=== PATIENT | male | born 1955 | race Caucasian/White ===

== ENCOUNTER 2018-07-03 18:31 | Inpatient (IN) | payer OTHER ==
[~2018-07-03] VITALS: Ht 177.8 cm; Wt 97.9 kg
[~2018-07-03 18:31] MED LIST: ATOR40TA PO; FISH1000 PO; FLAX PO; HYDACE5 PO; HYDR-86; IBUP600; MELO7.5 PO; ROSU10TA PO; ROSU5 PO
[2018-07-03 19:00] LABS: BASOPHILS ABSOLUTE AUTO 0.03 K/mm3 (0.00-0.23); BASOPHILS PERCENT AUTO 1 % (0-2); EOSINOPHILS ABSOLUTE AUTO 0.14 K/mm3 (0.00-0.68); EOSINOPHILS PERCENT AUTO 2 % (0-6); Hematocrit 45.3 % (37.0-53.0); Hemoglobin 14.7 g/dL (13.5-17.5); IMMATURE GRAN ABSOLUTE AUTO 0.01 K/mm3 (0.00-0.10); IMMATURE GRAN PERCENT AUTO 0 % (0-1); LYMPHOCYTES ABSOLUTE AUTO 1.68 K/mm3 (0.84-5.20); LYMPHOCYTES PERCENT AUTO 28 % (21-46); MONOCYTES ABSOLUTE AUTO 0.48 K/mm3 (0.16-1.47); MONOCYTES PERCENT AUTO 8 % (4-13); Mean Corpuscular HGB 28.3 pg (26.0-34.0); Mean Corpuscular HGB Conc 32.5 g/dL (31.5-36.5); Mean Corpuscular Volume 87 fL (80-100); Mean Platelet Volume 9.7 fL (9.1-12.4); NEUTROPHILS ABSOLUTE AUTO 3.74 K/mm3 (1.96-9.15); NEUTROPHILS PERCENT AUTO 62 % (41-73); Platelet Count 254 K/mm3 (150-400); RDW Coefficient Variation 13.9 % (11.7-14.2); RDW Standard Deviation 44.3 fL (35.1-46.3); Red Blood Cell Count 5.19 M/mm3 (4.30-5.90); White Blood Cell Count 6.08 K/mm3 (4.00-11.30)
[2018-07-03 19:26] LABS: Alanine Aminotransfer (ALT/SGP 43 U/L (12-78); Albumin, Blood 3.7 g/dL (3.4-5.0); Alk Phos 78 U/L (50-136); Anion Gap 6 mmol/L (6-16); Aspartate Aminotrans (AST/SGOT 26 U/L (12-37); Bilirubin, Total 0.5 mg/dL (0.1-1.0); Blood Urea Nitrogen 19 mg/dL (8-24); Bun/Creatinine Ratio 23.3 (12.0-20.0); CO2, Blood 26 mmol/L (21-32); Calcium, Blood 8.4 mg/dL (8.5-10.1); Chloride, Blood 107 mmol/L (98-108); Creatinine, Blood 0.81 mg/dL (0.60-1.20); Globulin, Blood 3.8 g/dL (2.2-4.0); Glomerular Filtration Rate >60 (60-); Glucose, Blood 95 mg/dL (70-99); Potassium, Blood 3.6 mmol/L (3.5-5.5); Sodium, Blood 139 mmol/L (136-145); Total Protein, Blood 7.5 g/dL (6.4-8.2)
[2018-07-04 06:09] LABS: Hematocrit 43.8 % (37.0-53.0); Hemoglobin 14.5 g/dL (13.5-17.5); Mean Corpuscular HGB 28.5 pg (26.0-34.0); Mean Corpuscular HGB Conc 33.1 g/dL (31.5-36.5); Mean Corpuscular Volume 86 fL (80-100); Mean Platelet Volume 9.7 fL (9.1-12.4); Platelet Count 257 K/mm3 (150-400); RDW Coefficient Variation 13.8 % (11.7-14.2); RDW Standard Deviation 43.8 fL (35.1-46.3); Red Blood Cell Count 5.09 M/mm3 (4.30-5.90); White Blood Cell Count 6.95 K/mm3 (4.00-11.30)
[2018-07-04 06:26] LABS: Alanine Aminotransfer (ALT/SGP 34 U/L (12-78); Albumin, Blood 3.4 g/dL (3.4-5.0); Alk Phos 73 U/L (50-136); Anion Gap 8 mmol/L (6-16); Aspartate Aminotrans (AST/SGOT 25 U/L (12-37); Bilirubin, Total 0.7 mg/dL (0.1-1.0); Blood Urea Nitrogen 17 mg/dL (8-24); Bun/Creatinine Ratio 21.1 (12.0-20.0); CO2, Blood 26 mmol/L (21-32); Calcium, Blood 8.2 mg/dL (8.5-10.1); Chloride, Blood 109 mmol/L (98-108); Creatinine, Blood 0.81 mg/dL (0.60-1.20); Globulin, Blood 3.5 g/dL (2.2-4.0); Glomerular Filtration Rate >60 (60-); Glucose, Blood 88 mg/dL (70-99); Potassium, Blood 3.7 mmol/L (3.5-5.5); Sodium, Blood 143 mmol/L (136-145); Total Protein, Blood 6.9 g/dL (6.4-8.2)
[2018-07-04 06:28] LABS: Troponin I 0.384 ng/mL (0.000-0.040)
--- NOTE | 2018-07-04 06:28 | NUR ---
VSS, AFEBRILE, A/O, INDEPENDENT, TELE: NSR, 20G R FA. PMHX: HTN. PLEASANT, COOPERATIVE, NEG TROPS, NEG EKG, STABLE. MAY D/C TODAY.
--- NOTE | 2018-07-04 13:04 | NUR ---
discharge PT STATE NO CHEST PAIN, NO N/T EXTREMITIES, STATE "I FEEL FINE". ECHO COMPLETED. DR BYRD IN TO SEE HIM REVIEW RESULTS OF CARDIAC ENZYMES, ORDER CARDIAC CONSULT. DR SOTO IN TO SEE PT, REVIEW RESULTS OF TESTS, STATE NEED FOR ANGIOGRAM & EXPLAIN PROCEDURE, CONSENT OBTAINED. [facility] RN IN TO TAKE PT OUT FOR PROCEDURE.
[2018-07-04 13:06] LABS: International Normalized Ratio 0.96; Prothrombin Time Results 10.2 Sec (9.7-11.5)
--- NOTE | 2018-07-04 13:29 | NUR ---
AM ASSESSMENT PT STATE NO PAIN, NO N/T EXTREMITIES, STATE "I FEEL FINE". DR BYRD IN TO SEE HIM REVIEW ELEVATED TROPONIN & NEED FOR CARDIAC CONSULT. DR SOTO IN TO SEE HIM REVIEW LABS & TESTS, EXPAIN NEED FOR ANGIOGRAM & PROCEDURE. PT CONSENTS. [facility]RT [facility] RN IN TO TAKE PT OUT FOR PROCDURE. WILL TRANSFER TO PCU AFTER.
--- NOTE | 2018-07-04 19:20 | NUR ---
Shift Summary Pt arrived to unit from at approx 1430. VSS. In no apparent sign of distress. Pt is A&Ox4. R radial access site wnl. Deflated per protocol and completely deflated at 1820. No s/sx of hematoma. Very small amnt of blood oozed at R radial access site, but no further bleeding noted after 1800. R wrist immobilizer in place. Pt compliant with activity restrictions. Pt denies any pain or CP. Denies any other complaints. Currently resting in bed with call light within reach. Denies any further questions, complaints or requests at this time. Will continue to montior until report is given to aubrie ADAMS.
[2018-07-05 04:41] LABS: BASOPHILS ABSOLUTE AUTO 0.04 K/mm3 (0.00-0.23); BASOPHILS PERCENT AUTO 1 % (0-2); EOSINOPHILS ABSOLUTE AUTO 0.13 K/mm3 (0.00-0.68); EOSINOPHILS PERCENT AUTO 2 % (0-6); Hematocrit 42.5 % (37.0-53.0); Hemoglobin 14.2 g/dL (13.5-17.5); IMMATURE GRAN ABSOLUTE AUTO 0.02 K/mm3 (0.00-0.10); IMMATURE GRAN PERCENT AUTO 0 % (0-1); LYMPHOCYTES ABSOLUTE AUTO 1.82 K/mm3 (0.84-5.20); LYMPHOCYTES PERCENT AUTO 24 % (21-46); MONOCYTES ABSOLUTE AUTO 0.45 K/mm3 (0.16-1.47); MONOCYTES PERCENT AUTO 6 % (4-13); Mean Corpuscular HGB 28.8 pg (26.0-34.0); Mean Corpuscular HGB Conc 33.4 g/dL (31.5-36.5); Mean Corpuscular Volume 86 fL (80-100); Mean Platelet Volume 9.9 fL (9.1-12.4); NEUTROPHILS ABSOLUTE AUTO 5.15 K/mm3 (1.96-9.15); NEUTROPHILS PERCENT AUTO 68 % (41-73); Platelet Count 253 K/mm3 (150-400); RDW Coefficient Variation 13.9 % (11.7-14.2); RDW Standard Deviation 43.9 fL (35.1-46.3); Red Blood Cell Count 4.93 M/mm3 (4.30-5.90); White Blood Cell Count 7.61 K/mm3 (4.00-11.30)
[2018-07-05 04:56] LABS: Albumin, Blood 3.3 g/dL (3.4-5.0); Anion Gap 7 mmol/L (6-16); Blood Urea Nitrogen 17 mg/dL (8-24); Bun/Creatinine Ratio 22.9 (12.0-20.0); CHOL/HDL RATIO 6.1; CO2, Blood 23 mmol/L (21-32); Chloride, Blood 111 mmol/L (98-108); Cholesterol 231 mg/dL (50-200); Creatinine, Blood 0.74 mg/dL (0.60-1.20); Glomerular Filtration Rate >60 (60-); Glucose, Blood 90 mg/dL (70-99); HDL Cholesterol 38 mg/dL (>39); LDL/HDL RATIO 4.5; Low Density Lipoprotein Chol 170 mg/dL (0-110); Phosphorus, Blood 2.5 mg/dL (2.5-4.9); Potassium, Blood 3.7 mmol/L (3.5-5.5); Sodium, Blood 141 mmol/L (136-145); Triglycerides 117 mg/dL (30-160); Very Low Density Lipoprot Chol 23 mg/dL (6-32)
--- NOTE | 2018-07-05 05:51 | NUR ---
SHIFT SUMMARY: PATIENT TR BAND FULLY RECOVERED AT APPROX 1820 07/04/18. PATIENT HAS WRIST IMMOBILIZER ON AND IS COMPLIANT. ALL VSS, RIGHT RADIAL MAINTAINED WELL WITH NO ISSUES. BED LOW AND LOCKED, CALL LIGHT WITHIN REACH.
--- NOTE | 2018-07-05 05:55 | NUR ---
PATIENT HAS BEEN NPO SINCE 209907/04/18 FOR CORONARY RISK PANEL.
[2018-07-05] MEDS ORDERED: ASPI325EC PO (11:07)
[2018-07-05] MEDS ORDERED: ATOR80 PO (11:07)
[2018-07-05] MEDS ORDERED: CLOP75 PO (11:07)
[2018-07-05] MEDS ORDERED: DOCU100 PO (11:08)
[2018-07-05] MEDS ORDERED: METO25ER PO (11:08)
[2018-07-05] MEDS ORDERED: ONDA4ODT MM (11:09)
== END 2018-07-05 12:56 | disposition home or self-care (01) | DRG 247 ==
LOC: ER 18:31 → MEDS 23:29 → PCU 07-04 13:49 → MEDS 07-04 13:49 → PCU 07-04 16:11 → MEDS 07-04 16:11 → PCU 07-05 12:56
PROVIDERS: Family Medicine; Internal Medicine Cardiovascular Disease; Physician Assistant; ADMIT Internal Medicine
PROC: 027034Z Dilation of Coronary Artery, One Artery with Drug-eluting Intraluminal Device, Percutaneous Approach (ICD-10-PCS; principal; 2018-07-04)
PROC: 4A023N7 Measurement of Cardiac Sampling and Pressure, Left Heart, Percutaneous Approach (ICD-10-PCS; 2018-07-04)
PROC: B2111ZZ Fluoroscopy of Multiple Coronary Arteries using Low Osmolar Contrast (ICD-10-PCS; 2018-07-04)
DX: I21.4 Non-ST elevation (NSTEMI) myocardial infarction (principal); I25.10 Atherosclerotic heart disease of native coronary artery without angina pectoris; I77.819 Aortic ectasia, unspecified site; R00.1 Bradycardia, unspecified; E78.5 Hyperlipidemia, unspecified; G89.29 Other chronic pain; M54.9 Dorsalgia, unspecified; Z79.899 Other long term (current) drug therapy; Z87.891 Personal history of nicotine dependence
CPT/HCPCS: 36415; 71046; 80053; 80061; 80069; 82550; 83690; 84484; 85025; 85027; 85347; 85610; 86850; 86900; 86901; 93005; 93010; 93306; 93458; 96372; 99152; 99153; 99285-25; C1725; C1769; C1874; C1887; C1894; C9600; G0378; J1644; J1650; J2250; J3010; J7030; Q9967

== ENCOUNTER 2019-04-17 17:30 | Emergency (ER) | payer OTHER ==
[~2019-04-17] VITALS: Ht 177.8 cm; Wt 95.2 kg
[~2019-04-17 17:30] MED LIST changes: +ASPI325EC PO; +ATOR80 PO; +CLOP75 PO; +DOCU100 PO; +METO25ER PO; +ONDA4ODT MM
[2019-04-17 18:44] LABS: Source, Urine Clean Catch
[2019-04-17 18:47] LABS: Appearance, Urine Clear (Clear); Bilirubin, Urine Neg (Neg); Blood, Urine Neg (Neg); Color, Urine Yellow (P-Yellow); Glucose Qualitative, Urine Neg (Neg); Ketones, Urine 1+ (Neg); Leukocyte Esterase, Urine Neg (Neg); Nitrite, Urine Neg (Neg); Protein, Urine Neg (Neg); Urobilinogen, Urine 1+ (Normal)
[2019-04-17 19:05] LABS: BASOPHILS ABSOLUTE AUTO 0.04 K/mm3 (0.00-0.23); BASOPHILS PERCENT AUTO 1 % (0-2); EOSINOPHILS ABSOLUTE AUTO 0.16 K/mm3 (0.00-0.68); EOSINOPHILS PERCENT AUTO 2 % (0-6); Hematocrit 43.1 % (37.0-53.0); Hemoglobin 13.9 g/dL (13.5-17.5); IMMATURE GRAN ABSOLUTE AUTO 0.01 K/mm3 (0.00-0.10); IMMATURE GRAN PERCENT AUTO 0 % (0-1); LYMPHOCYTES ABSOLUTE AUTO 1.42 K/mm3 (0.84-5.20); LYMPHOCYTES PERCENT AUTO 20 % (21-46); MONOCYTES ABSOLUTE AUTO 0.53 K/mm3 (0.16-1.47); MONOCYTES PERCENT AUTO 7 % (4-13); Mean Corpuscular HGB 28.7 pg (26.0-34.0); Mean Corpuscular HGB Conc 32.3 g/dL (31.5-36.5); Mean Corpuscular Volume 89 fL (80-100); Mean Platelet Volume 9.9 fL (9.1-12.4); NEUTROPHILS ABSOLUTE AUTO 5.05 K/mm3 (1.96-9.15); NEUTROPHILS PERCENT AUTO 70 % (41-73); Platelet Count 245 K/mm3 (150-400); RDW Coefficient Variation 14.2 % (11.7-14.2); RDW Standard Deviation 46.5 fL (35.1-46.3); Red Blood Cell Count 4.85 M/mm3 (4.30-5.90); White Blood Cell Count 7.21 K/mm3 (4.00-11.30)
[2019-04-17 19:24] LABS: Alanine Aminotransfer (ALT/SGP 38 U/L (12-78); Albumin, Blood 3.4 g/dL (3.4-5.0); Albumin/Globulin Ratio 1.1 (0.8-1.8); Alk Phos 79 U/L (50-136); Anion Gap 5 mmol/L (6-16); Aspartate Aminotrans (AST/SGOT 23 U/L (12-37); Bilirubin, Total 0.3 mg/dL (0.1-1.0); Blood Urea Nitrogen 26 mg/dL (8-24); Bun/Creatinine Ratio 36.7 (12.0-20.0); CO2, Blood 27 mmol/L (21-32); Calcium, Blood 8.3 mg/dL (8.5-10.1); Chloride, Blood 110 mmol/L (98-108); Creatinine, Blood 0.71 mg/dL (0.60-1.20); Globulin, Blood 3.1 g/dL (2.2-4.0); Glomerular Filtration Rate >60 (60-); Glucose, Blood 96 mg/dL (70-99); Potassium, Blood 3.7 mmol/L (3.5-5.5); Sodium, Blood 142 mmol/L (136-145); Total Protein, Blood 6.5 g/dL (6.4-8.2)
== END 2019-04-17 20:26 | disposition home or self-care (01) ==
LOC: ER 17:30
PROVIDERS: Physician Assistant
DX: K40.90 Unilateral inguinal hernia, without obstruction or gangrene, not specified as recurrent (principal); Z79.899 Other long term (current) drug therapy; Z79.82 Long term (current) use of aspirin
CPT/HCPCS: 36415; 74176; 80053; 81003; 85025; 96374; 99284-25; J1885

== ENCOUNTER 2020-10-07 10:46 | Emergency (ER) | payer OTHER ==
[~2020-10-07] VITALS: Ht 177.8 cm; Wt 95.2 kg
[2020-10-07 11:30] LABS: BASOPHILS ABSOLUTE AUTO 0.04 K/mm3 (0.00-0.23); BASOPHILS PERCENT AUTO 1 % (0-2); EOSINOPHILS PERCENT AUTO 4 % (0-6); Hematocrit 44.4 % (37.0-53.0); Hemoglobin 14.6 g/dL (13.5-17.5); IMMATURE GRAN ABSOLUTE AUTO 0.02 K/mm3 (0.00-0.10); IMMATURE GRAN PERCENT AUTO 0 % (0-1); LYMPHOCYTES ABSOLUTE AUTO 1.14 K/mm3 (0.84-5.20); LYMPHOCYTES PERCENT AUTO 21 % (21-46); MONOCYTES ABSOLUTE AUTO 0.39 K/mm3 (0.16-1.47); MONOCYTES PERCENT AUTO 7 % (4-13); Mean Corpuscular HGB 28.4 pg (26.0-34.0); Mean Corpuscular HGB Conc 32.9 g/dL (31.5-36.5); Mean Corpuscular Volume 86 fL (80-100); Mean Platelet Volume 9.8 fL (9.1-12.4); NEUTROPHILS ABSOLUTE AUTO 3.75 K/mm3 (1.96-9.15); NEUTROPHILS PERCENT AUTO 68 % (41-73); Platelet Count 254 K/mm3 (150-400); RDW Coefficient Variation 13.9 % (11.7-14.2); RDW Standard Deviation 44.4 fL (35.1-46.3); Red Blood Cell Count 5.14 M/mm3 (4.30-5.90); White Blood Cell Count 5.54 K/mm3 (4.00-11.30)
[2020-10-07 11:50] LABS: Alanine Aminotransfer (ALT/SGP 35 U/L (12-78); Albumin, Blood 3.6 g/dL (3.4-5.0); Alk Phos 75 U/L (50-136); Anion Gap 3 mmol/L (6-16); Aspartate Aminotrans (AST/SGOT 23 U/L (12-37); Bilirubin, Total 0.6 mg/dL (0.1-1.0); Blood Urea Nitrogen 15 mg/dL (8-24); Bun/Creatinine Ratio 19.2 (12.0-20.0); CO2, Blood 27 mmol/L (21-32); Chloride, Blood 107 mmol/L (98-108); Creatinine, Blood 0.78 mg/dL (0.60-1.20); Globulin, Blood 3.5 g/dL (2.2-4.0); Glomerular Filtration Rate >60 (60-); Glucose, Blood 137 mg/dL (70-99); Potassium, Blood 3.5 mmol/L (3.5-5.5); Sodium, Blood 137 mmol/L (136-145); Total Protein, Blood 7.1 g/dL (6.4-8.2)
[2020-10-07 12:14] LABS: Source, Urine Clean Catch
[2020-10-07 12:21] LABS: Appearance, Urine Clear (Clear); Bilirubin, Urine Neg (Neg); Blood, Urine Neg (Neg); Color, Urine Yellow (P-Yellow); Glucose Qualitative, Urine Neg (Neg); Ketones, Urine Neg (Neg); Leukocyte Esterase, Urine Neg (Neg); Nitrite, Urine Neg (Neg); Protein, Urine Neg (Neg); Urobilinogen, Urine NORM (Normal)
== END 2020-10-07 14:12 | disposition home or self-care (01) ==
LOC: ER 10:46
PROVIDERS: Emergency Medicine
DX: K62.5 Hemorrhage of anus and rectum (principal); I25.2 Old myocardial infarction; Z79.82 Long term (current) use of aspirin; Z79.02 Long term (current) use of antithrombotics/antiplatelets; Z79.899 Other long term (current) drug therapy
CPT/HCPCS: 36415; 74177; 80053; 81003; 83690; 85025; 99284-25; Q9967

== ENCOUNTER 2020-10-13 10:33 | Day surgery (SDC) | payer OTHER ==
[~2020-10-13] VITALS: Ht 177.8 cm; Wt 95.6 kg
--- NOTE | 2020-10-13 11:20 | NUR ---
10/13/20 1120 Jenifer Pastrana, RN CHARTING
== END 2020-10-13 13:27 | disposition home or self-care (01) ==
LOC: ORSCSDS 10:33
PROVIDERS: Surgery
PROC: 0DBL8ZX Excision of Transverse Colon, Via Natural or Artificial Opening Endoscopic, Diagnostic (ICD-10-PCS; principal; 2020-10-13 11:45)
DX: K62.5 Hemorrhage of anus and rectum (principal); Z86.010 Personal history of colon polyps; I25.10 Atherosclerotic heart disease of native coronary artery without angina pectoris; R10.31 Right lower quadrant pain; K64.8 Other hemorrhoids; Z79.01 Long term (current) use of anticoagulants; Z79.899 Other long term (current) drug therapy
CPT/HCPCS: 88305; J2704; J7120

== ENCOUNTER 2023-02-01 12:09 | Emergency (ER) | payer OTHER ==
[~2023-02-01] VITALS: Ht 177.8 cm; Wt 96.6 kg
[2023-02-01 12:57] LABS: BASOPHILS ABSOLUTE AUTO 0.02 K/mm3 (0.00-0.23); BASOPHILS PERCENT AUTO 0 % (0-2); EOSINOPHILS PERCENT AUTO 2 % (0-6); Hemoglobin 15.5 g/dL (13.5-17.5); IMMATURE GRAN ABSOLUTE AUTO 0.02 K/mm3 (0.00-0.10); IMMATURE GRAN PERCENT AUTO 0 % (0-1); LYMPHOCYTES ABSOLUTE AUTO 1.02 K/mm3 (0.84-5.20); LYMPHOCYTES PERCENT AUTO 17 % (21-46); MONOCYTES ABSOLUTE AUTO 0.44 K/mm3 (0.16-1.47); MONOCYTES PERCENT AUTO 8 % (4-13); Mean Corpuscular HGB 28.8 pg (26.0-34.0); Mean Corpuscular HGB Conc 33.7 g/dL (31.5-36.5); Mean Corpuscular Volume 86 fL (80-100); Mean Platelet Volume 9.7 fL (9.1-12.4); NEUTROPHILS ABSOLUTE AUTO 4.26 K/mm3 (1.96-9.15); NEUTROPHILS PERCENT AUTO 73 % (41-73); Platelet Count 237 K/mm3 (150-400); RDW Coefficient Variation 13.2 % (11.7-14.2); RDW Standard Deviation 40.7 fL (35.1-46.3); Red Blood Cell Count 5.38 M/mm3 (4.30-5.90); White Blood Cell Count 5.86 K/mm3 (4.00-11.30)
[2023-02-01 13:14] LABS: Albumin, Blood 3.5 g/dL (3.4-5.0); Bilirubin, Total 0.7 mg/dL (0.1-1.0); Bun/Creatinine Ratio 22.5 (12.0-20.0); Calcium, Blood 8.7 mg/dL (8.5-10.1); Creatinine, Blood 0.67 mg/dL (0.60-1.20); Globulin, Blood 3.6 g/dL (2.2-4.0); Potassium, Blood 4.2 mmol/L (3.5-5.5); Total Protein, Blood 7.1 g/dL (6.4-8.2)
[2023-02-01] MEDS ORDERED: MELO7.5 PO (14:36)
[2023-02-01] MEDS ORDERED: METOPROLOL SUCC25 MG PO (14:37)
[2023-02-01 14:57] LABS: Source, Urine Clean Catch
[2023-02-01 15:00] LABS: Appearance, Urine Clear (Clear); Bilirubin, Urine Neg (Neg); Blood, Urine Neg (Neg); Glucose Qualitative, Urine Neg (Neg); Ketones, Urine Neg (Neg); Leukocyte Esterase, Urine Neg (Neg); Nitrite, Urine Neg (Neg); Protein, Urine Neg (Neg); Specific Gravity, Urine 1.015 (1.003-1.022); Urobilinogen, Urine NORM (Normal); pH, Urine 6.5 (5.0-8.0)
[2023-02-01 15:01] LABS: Color, Urine Pale Yellow (P-Yellow)
[2023-02-01 16:10] VITALS: BP 140/78
== END 2023-02-01 16:16 | disposition home or self-care (01) ==
LOC: ER 12:09
PROVIDERS: Emergency Medicine; Physician Assistant
DX: R53.83 Other fatigue (principal); Z79.82 Long term (current) use of aspirin; Z79.899 Other long term (current) drug therapy; I25.2 Old myocardial infarction; Z95.5 Presence of coronary angioplasty implant and graft
CPT/HCPCS: 71045; 80053; 81003; 84443; 84484; 85025; 93005; 93010; 99284-25

== ENCOUNTER 2023-03-14 00:18 | Emergency (ER) | payer OTHER ==
[~2023-03-14] VITALS: Ht 177.8 cm; Wt 97.5 kg
[~2023-03-14 00:18] MED LIST changes: +METOPROLOL SUCC25 MG PO
[2023-03-14] MEDS ORDERED: HYDROCODONE-AC1 EAC7 PO (01:13)
[2023-03-14] MEDS ORDERED: HYDACE10B PO (01:14)
[2023-03-14 01:33] LABS: Source, Urine Clean Catch
[2023-03-14 01:48] LABS: BASOPHILS ABSOLUTE AUTO 0.04 K/mm3 (0.00-0.23); BASOPHILS PERCENT AUTO 1 % (0-2); EOSINOPHILS ABSOLUTE AUTO 0.18 K/mm3 (0.00-0.68); EOSINOPHILS PERCENT AUTO 3 % (0-6); Hematocrit 41.3 % (37.0-53.0); Hemoglobin 13.9 g/dL (13.5-17.5); IMMATURE GRAN ABSOLUTE AUTO 0.01 K/mm3 (0.00-0.10); IMMATURE GRAN PERCENT AUTO 0 % (0-1); LYMPHOCYTES PERCENT AUTO 21 % (21-46); MONOCYTES ABSOLUTE AUTO 0.44 K/mm3 (0.16-1.47); MONOCYTES PERCENT AUTO 7 % (4-13); Mean Corpuscular HGB 28.7 pg (26.0-34.0); Mean Corpuscular HGB Conc 33.7 g/dL (31.5-36.5); Mean Corpuscular Volume 85 fL (80-100); Mean Platelet Volume 9.7 fL (9.1-12.4); NEUTROPHILS ABSOLUTE AUTO 4.23 K/mm3 (1.96-9.15); NEUTROPHILS PERCENT AUTO 68 % (41-73); Platelet Count 248 K/mm3 (150-400); RDW Coefficient Variation 13.8 % (11.7-14.2); RDW Standard Deviation 42.9 fL (35.1-46.3); Red Blood Cell Count 4.85 M/mm3 (4.30-5.90)
[2023-03-14 01:55] LABS: Bilirubin, Urine Neg (Neg); Blood, Urine 5+ (Neg); Glucose Qualitative, Urine Neg (Neg); Ketones, Urine Neg (Neg); Leukocyte Esterase, Urine Neg (Neg); Nitrite, Urine Neg (Neg); Protein, Urine 1+ (Neg); Specific Gravity, Urine 1.025 (1.003-1.022); Urobilinogen, Urine NORM (Normal)
[2023-03-14 02:04] LABS: Albumin, Blood 3.4 g/dL (3.4-5.0); Bilirubin, Total 0.3 mg/dL (0.1-1.0); Calcium, Blood 8.1 mg/dL (8.5-10.1); Creatinine, Blood 0.72 mg/dL (0.60-1.20); Globulin, Blood 3.3 g/dL (2.2-4.0); Potassium, Blood 3.5 mmol/L (3.5-5.5); Total Protein, Blood 6.7 g/dL (6.4-8.2)
[2023-03-14 02:05] LABS: Appearance, Urine Hazy (Clear); Color, Urine Yellow (P-Yellow)
[2023-03-14 02:06] LABS: Bacteria Rare /hpf; Red Blood Cells, Urine 50-100 /hpf (0-2); Squamous Epithelial Cells Not Seen /hpf (Few); White Blood Cells, Urine 0-2 /hpf (0-5)
[2023-03-14 03:00] VITALS: BP 127/62
[2023-03-14] MEDS ORDERED: TAMS.4ER PO (04:05)
== END 2023-03-14 05:04 | disposition home or self-care (01) ==
LOC: ER 00:18
PROVIDERS: Physician Assistant
DX: N13.2 Hydronephrosis with renal and ureteral calculous obstruction (principal); I25.2 Old myocardial infarction; Z87.442 Personal history of urinary calculi
CPT/HCPCS: 74177; 80053; 81001; 85025; 99284-25; Q9967

== ENCOUNTER 2024-04-27 11:35 | Observation (INO) | payer OTHER ==
[~2024-04-27] VITALS: Ht 177.8 cm; Wt 92.5 kg
[2024-04-27] VITALS (8 sets, daily range): BP systolic 130–172; BP diastolic 71–86
[~2024-04-27 11:35] MED LIST changes: -ATOR80 PO; +HYDACE10B PO; +HYDROCODONE-AC1 EAC7 PO; +LIPITOR80 MG PO; +METO50ER PO; -METOPROLOL SUCC25 MG PO; +TAMS.4ER PO
[2024-04-27 12:00] LABS: BASOPHILS ABSOLUTE AUTO 0.03 K/mm3 (0.00-0.23); BASOPHILS PERCENT AUTO 1 % (0-2); EOSINOPHILS ABSOLUTE AUTO 0.08 K/mm3 (0.00-0.68); EOSINOPHILS PERCENT AUTO 1 % (0-6); Hematocrit 45.1 % (37.0-53.0); IMMATURE GRAN ABSOLUTE AUTO 0.02 K/mm3 (0.00-0.10); IMMATURE GRAN PERCENT AUTO 0 % (0-1); LYMPHOCYTES ABSOLUTE AUTO 0.99 K/mm3 (0.84-5.20); LYMPHOCYTES PERCENT AUTO 17 % (21-46); MONOCYTES ABSOLUTE AUTO 0.36 K/mm3 (0.16-1.47); MONOCYTES PERCENT AUTO 6 % (4-13); Mean Corpuscular HGB 28.8 pg (26.0-34.0); Mean Corpuscular HGB Conc 33.3 g/dL (31.5-36.5); Mean Corpuscular Volume 87 fL (80-100); Mean Platelet Volume 9.3 fL (9.1-12.4); NEUTROPHILS ABSOLUTE AUTO 4.46 K/mm3 (1.96-9.15); NEUTROPHILS PERCENT AUTO 75 % (41-73); Platelet Count 252 K/mm3 (150-400); RDW Coefficient Variation 13.4 % (11.7-14.2); RDW Standard Deviation 42.5 fL (35.1-46.3); Red Blood Cell Count 5.21 M/mm3 (4.30-5.90); White Blood Cell Count 5.94 K/mm3 (4.00-11.30)
[2024-04-27] MEDS ORDERED: Aspirin 325 MG Tab PO ONE (12:15)
[2024-04-27 12:16] LABS: Albumin, Blood 3.7 g/dL (3.4-5.0); Albumin/Globulin Ratio 1.1 (0.8-1.8); Bilirubin, Total 0.8 mg/dL (0.1-1.0); Bun/Creatinine Ratio 26.7 (12.0-20.0); Calcium, Blood 9.1 mg/dL (8.5-10.1); Creatinine, Blood 0.64 mg/dL (0.60-1.20); Globulin, Blood 3.4 g/dL (2.2-4.0); Potassium, Blood 4.1 mmol/L (3.5-5.5); Total Protein, Blood 7.1 g/dL (6.4-8.2)
[2024-04-27] MEDS ORDERED: Heparin Sodium 1000 Units/ML 10ML MDV ONE ×3 (14:35→16:32)
[2024-04-27] MEDS ORDERED: Verapamil HCL 2.5 MG/ML 2ML Injection ONE (14:35)
[2024-04-27] MEDS ORDERED: NS 250 ML IV ONE (14:36)
[2024-04-27] MEDS ORDERED: NS 1,000 ML IV ONE ×2 (14:36→14:41)
[2024-04-27] MEDS ORDERED: Nitroglycerin 2 MG/20 ML BTL ONE (14:36)
[2024-04-27] MEDS ORDERED: FentaNYL Citrate 50 MCG/ML 2 ML Injection ONE ×3 (14:40→17:44)
[2024-04-27] MEDS ORDERED: Midazolam HCl 1MG / ML 2ML Vial ONE ×2 (14:41→16:40)
[2024-04-27] MEDS ORDERED: Ticagrelor 90 MG TABLET ONE (15:38)
[2024-04-27] MEDS ORDERED: NS 500 ML IV ONE (16:32)
[2024-04-27] MEDS ORDERED: FLU VACC TS2024-25(6MOS UP)/PF 45 MCG/0.5 ML SYRINGE IM SCH (17:05)
[2024-04-27] MEDS ORDERED: Ondansetron HCl 2 MG / ML 2ML Vial IV PRN (17:05)
[2024-04-27] MEDS ORDERED: Metoclopramide HCl 5MG / ML 2ML Vial IV PRN (17:05)
[2024-04-27] MEDS ORDERED: Ondansetron 4 MG TAB PO PRN (17:05)
[2024-04-27] MEDS ORDERED: TraZODone HCl 50 MG Tab PO PRN (17:05)
[2024-04-27] MEDS ORDERED: Acetaminophen 325 MG TABLET PO PRN (17:10)
--- NOTE | 2024-04-27 18:48 | NUR ---
ARRIVAL TO PCU: Patient arrived to PCU via bed, bedside shift report from the pathology laboratory technologist nurses Levon and Sonali. Patient is groggy but oriented x4. Reports mild chest pressure. He recieved 4 stents to the LAD, he has a right radial site with a moderate sized hematoma forming, pressure was held and 2nd TR band placed with 5cc of air. Patients fingers are dusky, he does have a good pleth on the right pointer finger. VSS. LS CTA, Biox is high 90s on RA. BT+. No skin issues, other than the radial site. PPP. Dr. Stevenson notified of cath site changes, states he will come and look at it shortly.
[2024-04-27] MEDS ORDERED: Nitroglycerin 0.4 MG SUBL SL PRN (19:30)
--- NOTE | 2024-04-27 20:00 | NUR ---
ASSUMPTION OF CARE NOTE A/Ox4 AND COOPERATIVE WITH CARE. ANSWERS QUESTIONS APPROPRIATELY AND ABLE TO MAKE HIS NEEDS KNOWN. UNDERWENT ANGIOGRAM WITH STENT PLACEMENT THIS PM. RIGHT RADIAL ACCESS SITE INTACT WITH TWO TR BANDS NOTED. MILD HEMATOMA NOTED ABOVE ACCESS SITE WITH RIGHT HAND COLD TO THE TOUCH. HAND ALSO NOTED TO BE DARK IN COLOR. PT DENIES N/T TINGLING AT THIS TIME. DR. MERCHANT TO BEDSIDE TO EVALUTE SITE. SECOND TR BAND TAKEN OFF AND REPLACED WITH RADIAL BP CUFF AND INFLATED PER MD'S ORDERS. PRIMARY TR BAND TO BEGIN DEFLATION IN 1.5 HRS PER MD. SPO2 FINGER PROBE ALSO IN PLACE WITH GOOD PLETH. CARDIAC, TELEMETRY DEMONSTRATES SR 70-90'S. ENDORSES MILD CHEST DISCOMFORT/SORNESS, PRN NITRO ORDERED PER DR. MERCHANT. NITRO GIVEN WITH GOOD EFFECT. SBP ELEVATED RANGING 130-160'S. RESPIRATORY, MAINTAINS SPO2 >90% ON RA. DENIES SOB OR DYSPNEA AT THIS TIME. GI/, DENIES N/V/D OR ABD TENDERNESS. BS PRESENT IN ALL QUADRANTS. ABLE TO AMBULATE INDPENDENTLY WELL USE URINAL AT BEDSIDE. SKIN OVERALL C/D/I. 1xPIV NOTED IN LEFT HAND.
[2024-04-27] MEDS ORDERED: Famotidine 20 MG Tab PO SCH (21:00)
--- NOTE | 2024-04-27 22:30 | NUR ---
UPDATE TR BAND FULLY DEFLATED AND RECOVERED. HEMATOMA STILL PRESENT ABOVE SITE, BUT COLOR HAS IMPROVED SIGNIFICANTLY. HAND MORE WARM TO THE TOUCH WITH GOOD CAPILLARY REFILL. DENIES SITE TENDERNESS, NUMBNESS, OR TINGLING IN THE HAND. SITE THOROUGHLY CLEANED WITH CHLORHEXIDINE AND TEGADERM PLACED. PROTECTIVE ARMBOARD PLACED WELL. DENIES ANY CP, PRESSURE OR DIZZINESS AT THIS TIME.
[2024-04-28 03:55] LABS: BASOPHILS ABSOLUTE AUTO 0.02 K/mm3 (0.00-0.23); BASOPHILS PERCENT AUTO 0 % (0-2); EOSINOPHILS ABSOLUTE AUTO 0.09 K/mm3 (0.00-0.68); EOSINOPHILS PERCENT AUTO 1 % (0-6); Hematocrit 40.9 % (37.0-53.0); IMMATURE GRAN ABSOLUTE AUTO 0.04 K/mm3 (0.00-0.10); IMMATURE GRAN PERCENT AUTO 0 % (0-1); LYMPHOCYTES ABSOLUTE AUTO 1.04 K/mm3 (0.84-5.20); LYMPHOCYTES PERCENT AUTO 12 % (21-46); MONOCYTES ABSOLUTE AUTO 0.59 K/mm3 (0.16-1.47); MONOCYTES PERCENT AUTO 7 % (4-13); Mean Corpuscular HGB 28.8 pg (26.0-34.0); Mean Corpuscular HGB Conc 34.2 g/dL (31.5-36.5); Mean Corpuscular Volume 84 fL (80-100); Mean Platelet Volume 9.2 fL (9.1-12.4); NEUTROPHILS ABSOLUTE AUTO 7.21 K/mm3 (1.96-9.15); NEUTROPHILS PERCENT AUTO 80 % (41-73); Platelet Count 225 K/mm3 (150-400); RDW Coefficient Variation 13.5 % (11.7-14.2); RDW Standard Deviation 41.6 fL (35.1-46.3); Red Blood Cell Count 4.86 M/mm3 (4.30-5.90); White Blood Cell Count 8.99 K/mm3 (4.00-11.30)
[2024-04-28 04:09] LABS: Albumin, Blood 3.3 g/dL (3.4-5.0); Albumin/Globulin Ratio 1.1 (0.8-1.8); Bilirubin, Total 0.9 mg/dL (0.1-1.0); Bun/Creatinine Ratio 20.3 (12.0-20.0); Calcium, Blood 8.4 mg/dL (8.5-10.1); Creatinine, Blood 0.79 mg/dL (0.60-1.20); Globulin, Blood 3.1 g/dL (2.2-4.0); Potassium, Blood 3.5 mmol/L (3.5-5.5); Total Protein, Blood 6.4 g/dL (6.4-8.2)
[2024-04-28 04:23] VITALS: BP 117/75
--- NOTE | 2024-04-28 05:56 | NUR ---
SHIFT SUMMARY NO ACUTE CHANGES SINCE UPDATE NOTE, SEE NOTE FOR DETAILS. HEMATOMA ABOVE RIGHT RADIAL ACCESS SITE HAS IMPROVED. HAND REMAINS WARM TO THE TOUCH WITH GOOD CAPILLARY REFILL. DENIES ANY CP, PRESSURE OR DIZZINESS AT THIS TIME. RADIAL PULSE PALPIBLE ABOVE AND BELOW SITE. EKG CONDUCTED THIS AM ORDERED. NO OTHER ORDERS AT THIS TIME, WILL REPORT TO ONCOMING RN. MEGHAN GOLDSMITH OF THIS NOTE.
[2024-04-28] MEDS ORDERED: Ticagrelor 90 MG TABLET PO SCH (06:00)
[2024-04-28] MEDS ORDERED: Atorvastatin 40 MG Tab PO SCH (06:00)
[2024-04-28] MEDS ORDERED: Aspirin 81 MG Chew PO SCH (06:00)
[2024-04-28 08:32] VITALS: BP 143/86
--- NOTE | 2024-04-28 08:37 | NUR ---
NURSING PCU DAYSHIFT: Assumed care of pt at approx 0700. A/O, very pleasant, cooperative w/care. C/O general body tiredness along w/HENSON 2/10, cool cloth applied to forehead and tylenol administered as ordered. Repositions independently and w/o difficulty. Ambulates w/one staff assist for line management. Skin w/o breakdown, R radial site stable w/no bleed/hematoma, tegaderm and wrist board in place. Tele in place, NSR, no c/o CP/pressure, SBP 143, no noted edema. L/S cta in mid/upper lobes, bibasilar crackles, respirations shallow, denies dyspnea, O2 sat 99% on RA, no noted cough. Abd SNT, BT+, voiding w/o difficulty per pt. PIV x1, s/l. Pt denies any current needs or questions regarding plan of care and is hopeful for discharge home today. Awaiting rounding from PMD and harness repairer. Pt currently sitting up in bed eating breakfast w/call light in reach, cont to monitor for changes.
[2024-04-28] MEDS ORDERED: Enoxaparin 40 MG/0.4 ML SYR SC SCH (09:00)
[2024-04-28] MEDS ORDERED: Metoprolol Succinate 50 MG TABCR PO SCH (11:00)
[2024-04-28] MEDS ORDERED: ASPI81CH PO (11:41)
[2024-04-28] MEDS ORDERED: EZET10 PO (11:41)
[2024-04-28] MEDS ORDERED: NITR.4SL SL (11:42)
[2024-04-28] MEDS ORDERED: TICA90TA PO (11:42)
--- NOTE | 2024-04-28 11:43 | NUR ---
NURSING PCU DISCHARGE SUMMARY: Pt has done well t/o a.m. Ambulating indepently w/o difficulty. Seen by director check and PMD, ok'd for discharge home. Verbalized understanding of all written and verbal discharge instructions. PIV accidently pulled by patient, cath intact. Rx's faxed to [facility] per pt request. No s/s of acute distress, will discharge from unit vial w/c.
[2024-04-28 11:52] VITALS: BP 137/79
[2024-04-29] MEDS ORDERED: Atorvastatin 40 MG Tab PO SCH (09:00)
[2024-04-29] MEDS ORDERED: Ezetimibe 10 MG Tab PO SCH (09:00)
== END 2024-04-28 12:27 | disposition home or self-care (01) ==
LOC: ER 11:35 → MEDS 12:58 → PCU 15:00
PROVIDERS: Emergency Medicine; ADMIT Internal Medicine
DX: I25.110 Atherosclerotic heart disease of native coronary artery with unstable angina pectoris (principal); E78.5 Hyperlipidemia, unspecified; Q23.81 Bicuspid aortic valve; M54.9 Dorsalgia, unspecified; G89.29 Other chronic pain; K64.8 Other hemorrhoids; Z79.899 Other long term (current) drug therapy; Z95.5 Presence of coronary angioplasty implant and graft
CPT/HCPCS: 36415; 71045; 76937; 80053; 84484; 85025; 85347; 92972; 92978; 93005; 93010; 93458; 99152; 99153; 99285-25; A9270; C1725; C1753; C1761; C1769; C1874; C1887; C1894; C9600; G0378; J1644; J2250; J3010; J7030; J7040; J7050; Q9967